=== PATIENT | male | born 1975 | race Two or more races ===

== ENCOUNTER 2019-10-06 19:41 | Emergency (ER) | payer OTHER ==
[~2019-10-06] VITALS: Ht 185.4 cm; Wt 90.0 kg
[~2019-10-06 19:41] MED LIST: OXYC-302 PO; POLY119P4 PO
[2019-10-06] MEDS ORDERED: IBUPROFEN 600 MG TABLET PO ONE (20:30)
[2019-10-06] MEDS ORDERED: IBUPROFEN 600 MG TABLET ONE (20:34)
--- NOTE | 2019-10-06 20:38 | NUR ---
Patient medicated per order. AAO x 4 speech clear. States his head still feels hot. Resting on gurcande FRENCH noted
[2019-10-06 20:39] LABS: BASOPHILS # (AUTO) 0.02 x10^3/uL (0-0.1); BASOPHILS % (AUTO) 1 % (0-1); EOSINOPHILS % (AUTO) 0 % (1-7); LYMPHOCYTES # (AUTO) 0.54 x10^3/uL (1-3.4); LYMPHOCYTES % (AUTO) 16 % (22-44); MD NO; MEAN CORPUSCULAR HEMOGLOBIN 30.9 pg (27.5-34.5); MEAN CORPUSCULAR HGB CONC 33.8 g/dL (33.2-36.2); MEAN CORPUSCULAR VOLUME 91.4 fL (81-97); MEAN PLATELET VOLUME 8.3 fL (7.4-10.4); MONOCYTES # (AUTO) 0.41 x10^3/uL (0.2-0.8); MONOCYTES % (AUTO) 13 % (2-9); NEUTROPHILS # (AUTO) 2.33 x10^3/uL (1.8-6.8); NEUTROPHILS % (AUTO) 71 % (42-75); PLATELET COUNT 180 x10^3/uL (130-400); RED BLOOD COUNT 4.72 x10^6/uL (4.38-5.82); RED CELL DISTRIBUTION WIDTH 13.5 % (9.4-14.8)
[2019-10-06 20:48] LABS: ALBUMIN 3.5 g/dL (3.4-5.0); ANION GAP 9 mmol/L (5-15); CALCIUM 8.2 mg/dL (8.5-10.1); CHLORIDE 107 mmol/L (98-107); CREATININE 1.03 mg/dL (0.7-1.3)
--- NOTE | 2019-10-06 21:14 | NUR ---
Patient reassessed states the medication didnt really help him feel better. Resting on gurney, watching tv
[2019-10-06 22:38] VITALS: BP 123/73
--- NOTE | 2019-10-06 22:43 | NUR ---
Patient discharged home, discharge instructions provided handout in spain[place] was given to the patient in regards to COVID 19. Verbalized understanding. NAD noted at time of dischaarge. AMB with steady gait.
== END 2019-10-06 22:46 | disposition home or self-care (01) ==
LOC: ED 20:33
DX: U07.1 COVID-19 (principal); R50.9 Fever, unspecified
CPT/HCPCS: 36415; 71045; 80048; 82040; 83605; 84145; 85025; 87040; 87635; 99284